=== PATIENT | male | born 1945 | race Caucasian/White ===

== ENCOUNTER → 2018-05-20 | Outpatient (CLI) | payer MEDICARE, OTHER ==
[~2018-05-20] MED LIST: ASPI-1471 PO; ATOR40TA24 PO; DOCU-416 PO; FERR-53 PO; METO25TA93 PO; MULT-1167 PO; NIASPAN; NITR0.4T3 SL; OMEP-218 PO; PHEN100T27 PO; POLY17PO25 PO; TAMS0.4C70 PO; VYTORIN PO
[2018-05-20 08:52] LABS: PLATELET COUNT, AUTOMATED 445 K/uL (150-450)
[2018-05-20 09:06] LABS: LDL CHOLESTEROL 75 mg/dl
== END ==
LOC: LAB 08:25
PROVIDERS: ATTEND Internal Medicine
DX: I25.10 Atherosclerotic heart disease of native coronary artery without angina pectoris (principal); E78.5 Hyperlipidemia, unspecified; C61 Malignant neoplasm of prostate
CPT/HCPCS: 36415; 81001; 82040; 82247; 82310; 82374; 82435; 82465; 82565; 82947; 83718; 84075; 84132; 84153; 84155; 84295; 84443; 84450; 84460; 84478; 84520; 85025

== ENCOUNTER 2018-06-02 11:00 | Outpatient (RCR) | payer MEDICARE, OTHER ==
[2018-05-03 16:59] VITALS: BP_SYST 116; BP_SYST 122; BP_DIAS 68; BP_DIAS 76
--- NOTE | 2018-05-03 17:25 | CARDIAC REHAB PLAN OF CARE ---
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 Patient has a history of slightly high HbA1C, but is not yet being treated as a diabetic. Patient primarily has an extensive family history of heart disease. Exercise Assessment:Patient is relatively active, exercising for about an hour every day prior to his recent cardiac event. During his 0-wivvlf-ssoi test he walked a total of 1175ft at about 2.2mph. His SPO2 remains above 90% during exercise, with a HR range between 103-117bpm. BP response was normal maximizing at 158/70mmHg Exercise Plan: Goals: The patient's primary goal will be to slowly progress in total duration of exercise (at least 150 min/week) by the end of the next month. Following duration progression our next goal will be to increase intensity, aiming between 4-6 METs by the end of the next month. Exercise Prescription: Mode: Treadmill and recumbent bike Frequency: 3 days/week at cardiac rehab. Following 2 monitored weeks at [facility], the patient may begin regular exercise at home on off days--no more than what he currently does during rehab. Duration: 150 min/week; 50 minutes/session Intensity: THR range 105-120bpm; Treadmill at 2.0mph beginning at 1% grade and increasing grade for progresison. Recumbent bike at least 50rpm and 2.5 level. Increasing RPMs and level for progression Education: Education will be focused on teaching the patient how to monitor exercise comfort and intensity away from the supervised rehab setting. He needs to learn what are appropriate repsonses to exercise and what are not ( e.g. dizziness, lightheadedness). We will also focus our education component on appropriate progression and how to create a total physical health exercise program geared towards strenght, cardio, balance, and flexibility. Exercise Reassessment (Date: ): Exercise Discharge/Follow-Up (Date: ): Nutrition Assessment: Patient's currently does the primary component of the food preparation and cooking. They eat a relatively balanced diet, but do need to be conscious of the amount of sugar (both natural and additive) they consume. The patient could also benefit from incorporating more vegetables and whole grains into his diet. He does not currently need to lose weight, but should be mindful of diet to help control cholesterol and triglycerides Nutrition Plan: Goals: Goals will be to help educate within the patient and his family about whole foods and a well-balanced diet. Also, to help the patient incorporate more vegetables and whole grains into his diet. Intervention:Intervention will include printed information and education that the patient can take home and read, reference, and share with his family. Education: Education will focus towards food substitutions that are healthier and the reasoning behind avoiding certain foods and incorporating certain foods Nutrition Reassessment (Date: ): Nutrition Discharge/Follow-Up (Date: ): Psychosocial Assessment: Patient reports higher levels of anxiety following his cardiac event, which is not unexpected. According to his HADS assessment, he ranks relatively low on both depression and anxiety. He has a good support system through his and family, and appears relatively active at home to maintain social connections. Psychosocial Plan: Goals:Goals will be to help maintain his currenty psychological standing, and to help him improve his confidence in his physicla ability following his cardiac event. Intervention: Our main intervention will be to try to incorporate his is most, if not all, of his rehabilitation time and education to help create a social support. Education: Educational needs will be targeted towards exercise benefits following cardiac surgery and making sure the patient feels safe and comfortable at all times. Psychosocial Reassessment (Date: ): Psychosocial Discharge/Follow-Up (Date: ): Physician Signature: Date: _ MTDD
[2018-05-05 13:25] VITALS: BP 120/62
[2018-05-05 13:26] VITALS: BP 102/58
[2018-05-07 13:00] VITALS: BP_SYST 102; BP_SYST 110; BP_DIAS 58; BP_DIAS 60
[2018-05-10 12:54] VITALS: BP_SYST 120; BP_SYST 126; BP_DIAS 64; BP_DIAS 68
[2018-05-12 13:10] VITALS: BP 124/70
[2018-05-12 13:11] VITALS: BP 104/62
[2018-05-14 13:28] VITALS: BP 122/74
[2018-05-14 13:29] VITALS: BP 122/72
[2018-05-17 13:18] VITALS: BP 110/62
[2018-05-17 13:19] VITALS: BP 124/76
[2018-05-19 13:40] VITALS: BP_SYST 102; BP_SYST 110; BP_DIAS 58; BP_DIAS 60
[2018-05-21 13:29] VITALS: BP 118/66
[2018-05-21 13:30] VITALS: BP 116/60
[2018-05-26 13:19] VITALS: BP 114/68
[2018-05-26 13:22] VITALS: BP 102/64
[2018-05-28 13:52] VITALS: BP 116/66
[2018-05-28 13:53] VITALS: BP 110/64
[2018-05-28 17:10] VITALS: BP 116/66
[2018-05-31 13:41] VITALS: BP 124/66
[2018-05-31 13:42] VITALS: BP 112/60
[2018-06-02 13:43] VITALS: BP 122/70
--- NOTE | 2018-06-02 14:33 | CARDIAC REHAB PLAN OF CARE ---
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 Patient has a history of slightly high HbA1C, but is not yet being treated as a diabetic. Patient primarily has an extensive family history of heart disease. Exercise Assessment: Patient is relatively active, exercising for about an hour every day prior to his recent cardiac event. During his 1-zxjmhi-iufj test he walked a total of 1175ft at about 2.2mph. His SPO2 remains above 90% during exercise, with a HR range between 103-117bpm. BP response was normal maximizing at 158/70mmHg Exercise Plan: Goals: The patient's primary goal will be to slowly progress in total duration of exercise (at least 150 min/week) by the end of the next month. Following duration progression our next goal will be to increase intensity, aiming between 4-6 METs by the end of the next month. Exercise Prescription: Mode: Treadmill and recumbent bike Frequency: 3 days/week at cardiac rehab. Following 2 monitored weeks at [facility], the patient may begin regular exercise at home on off days--no more than what he currently does during rehab. Duration: 150 min/week; 50 minutes/session Intensity: THR range 105-120bpm; Treadmill at 2.0mph beginning at 1% grade and increasing grade for progression. Recumbent bike at least 50rpm and 2.5 level. Increasing RPMs and level for progression Education: Education will be focused on teaching the patient how to monitor exercise comfort and intensity away from the supervised rehab setting. He needs to learn what are appropriate responses to exercise and what are not (e.g. dizziness, lightheadedness). We will also focus our education component on appropriate progression and how to create a total physical health exercise program geared towards strength, cardio, balance, and flexibility. Exercise Reassessment (Date: 06/11/18): Patient has progressed well over the past month during his exercise sessions. He has been able to maintain his total duration of exercise to 30 minutes/session at a [id number]-dr-[id number] intensity. His HR, ECG, and BP response during exercise has been within normal limits and demonstrates an improved tolerance for overall exercise. The patient has expressed his boredom here in [facility] and has received permission from his power shovel operator helper and the rehab staff for the following changes. New Exercise Prescription: He will continue to come to [facility] for his endurance/cardiorespiratory training. He will exercise for 30 minutes with the emphasis on increasing intensity. He will begin doing occasional interval training (~30s on x 1:30 off) with a new HR range between 100-140bpm intermittently between his endurance training. His power shovel operator helper has given him clearance to exercise at this higher intensity and his BP response is WNL. This is all pending [facility] Brush Or Broom Cutter Approval. When he is finished with his cardio training he plans to go exercise at the [facility] for upper and lower body strength training. Exercise Discharge/Follow-Up (Date: ): Nutrition Assessment: Patient's currently does the primary component of the food preparation and cooking. They eat a relatively balanced diet, but do need to be conscious of the amount of sugar (both natural and additive) they consume. The patient could also benefit from incorporating more vegetables and whole grains into his diet. He does not currently need to lose weight, but should be mindful of diet to help control cholesterol and triglycerides Nutrition Plan: Goals: Goals will be to help educate within the patient and his family about whole foods and a well-balanced diet. Also, to help the patient incorporate more vegetables and whole grains into his diet. Intervention: Intervention will include printed information and education that the patient can take home and read, reference, and share with his family. Education: Education will focus towards food substitutions that are healthier and the reasoning behind avoiding certain foods and incorporating certain foods Nutrition Reassessment (Date: 06/02/18): The patient his hesitant to discuss his dietary changes. This makes us believe, as his care team, that he has not made any changes or initiate the process of starting the change. He currently is in the pre-contemplative state of behavior changes in means of motivation. Our goal over the next month will be to get him into the contemplative statemaking him understand the need and benefits of nutritional changes and be thinking about it on a more regular basis. Nutrition Discharge/Follow-Up (Date: ): Psychosocial Assessment: Patient reports higher levels of anxiety following his cardiac event, which is not unexpected. According to his HADS assessement, he ranks relatively low on both depression and anxiety. He has a good support system through his and family, and appears relatively active at home to maintain social connections. Psychosocial Plan: Goals:Goals will be to help maintain his currently psychological standing, and to help him improve his confidence in his physicla ability following his cardiac event. Intervention: Our main intervention will be to try to incorporate his is most, if not all, of his rehabilitation time and education to help create a social support. Education: Educational needs will be targeted towards exercise benefits following cardiac surgery and making sure the patient feels safe and comfortable at all times. Psychosocial Reassessment (Date: 06/02/18): The patient has expressed boredom here at [facility] and that it doesnt feel like much of a challenge for him. We have addressed this concern in his exercise reassessment above. Overall he appears to still be enjoying the program as a whole and seems to be maintaining his current psychosocial standing. Psychosocial Discharge/Follow-Up (Date: ): Physician Signature: Date: JULISSAD
== END 2018-06-02 18:00 | disposition home or self-care (01) ==
LOC: CARD 11:00
PROVIDERS: ATTEND Thoracic Surgery (Cardiothoracic Vascular Surgery)
DX: I25.10 Atherosclerotic heart disease of native coronary artery without angina pectoris (principal); I25.84 Coronary atherosclerosis due to calcified coronary lesion; Z95.5 Presence of coronary angioplasty implant and graft; Z95.1 Presence of aortocoronary bypass graft; I25.2 Old myocardial infarction; Z87.891 Personal history of nicotine dependence
CPT/HCPCS: 93798

== ENCOUNTER → 2019-04-04 | Outpatient (CLI) | payer MEDICARE, OTHER ==
[2019-04-04 10:17] LABS: LDL CHOLESTEROL 91 mg/dl
== END ==
LOC: LAB 08:44
PROVIDERS: ATTEND Internal Medicine Cardiovascular Disease
DX: I25.84 Coronary atherosclerosis due to calcified coronary lesion (principal); I25.10 Atherosclerotic heart disease of native coronary artery without angina pectoris
CPT/HCPCS: 36415; 82040; 82247; 82310; 82374; 82435; 82465; 82565; 82947; 83718; 84075; 84132; 84155; 84295; 84450; 84460; 84478; 84520

== ENCOUNTER 2019-04-19 13:45 | Outpatient (RCR) | payer MEDICARE, OTHER ==
--- NOTE | 2019-04-11 13:39 | PT INITIAL EVALUATION ---
MEDICAL DIAGNOSIS: groin pain TREATMENT DIAGNOSIS: same DATE OF ONSET: 04/11/18 SUBJECTIVE: Jameel Chaney presents to physical therapy with complaints of R sided groin pain that started approximately one year ago. He reports that the pain is worse with golfing, walking, and with hip IR and ER. Furthermore, he reports that he feels like his R IR and ER has significantly reduced as a result of the pain. He reports that he feels like he limps due to the pain and would like to abolish the pain with ambulating, golfing, and improve his hip IR and ER range of motion and normalize his end feel. He reports that he has harness cleaner stiffness and feels like it gets better with movement. Pain location is R adductor longus and described as consistent and predictable pain with certain movement. Pain scale is 2 on a ten point pain scale. REHAB PROBLEM LIST: Increased Pain Decreased ROM Decreased Strength Decreased Endurance Decreased Function Decreased Gait PREVIOUS MEDICAL HISTORY: See EMR OCCUPATION: Retired direct care specialist OBJECTIVE: Posture: He demonstrates minimal forward head, B rounded shoulders, increased thoracic kyphosis, and decreased lumbar lordosis. ROM: Trunk AROM: NIL with normalized end feels with the exception of R sidegliding, which caused the groin pain. Strength: B hip abduction, B hip flexion, B hip extension: 4+/5. R hip adduction: strong and painful. L hip adduction: 5/5 with no pain. Palpation: TTP: insertional point of adductor longus Sensation: Intact L2-S1 Special Tests: + tendinopathy for adductor longus: pain with palpation, pain with stretching the muscle, and pain with contraction on the muscle. Mobility: Independent Gait: He demonstrated minimal antalgic gait resulting in decreased L step length and decreased velocity Balance: Will test in the future ASSESSMENT: Jameel will benefit from skilled physical therapy addressing the listed impairments to improve function, achieve goals, and return to prior level of function. Short Term Goals 8 weeks: Pt will demonstrate abolished groin pain with golfing, ambulating, and everyday functional activities to improve function and QOL. 8 weeks: Pt will be independent with his home exercise program. Patient's Goals to abolish groin pain PLAN: Patient to be seen for Manual Therapy/STM/MET Strengthening/condition Ice/Heat Range of Motion Spinal Stabilization Work Hardening/Cond Stretching Iontophoresis Neuromuscular Re-ed Closed Chain Program Electrical Stim Posture/Body mechanics Gait Trg/Balance Trg Home Exercise Program Therapeutic Activities Please sign: Date: 2x/Week for 2 Months If you have any questions, comments, or concerns about this report or plan, please contact me at . Thank you, Calderon Morton, PT, DPT MTDD
== END 2019-04-19 18:00 | disposition home or self-care (01) ==
LOC: PT 13:45
PROVIDERS: ATTEND Internal Medicine Cardiovascular Disease
DX: R10.30 Lower abdominal pain, unspecified (principal); I25.10 Atherosclerotic heart disease of native coronary artery without angina pectoris; I25.84 Coronary atherosclerosis due to calcified coronary lesion
CPT/HCPCS: 97161